=== PATIENT | female | born 1960 | race Caucasian/White ===

== ENCOUNTER 2018-01-28 23:11 | Emergency (ER) | payer BC ==
[2018-01-29] MEDS: KETOROLAC 60 MG/2 ML VIAL (J1885) IM
== END 2018-01-29 02:05 | disposition home or self-care (01) ==
LOC: M ED 23:11
DX: I80.01 Phlebitis and thrombophlebitis of superficial vessels of right lower extremity (principal); Z79.899 Other long term (current) drug therapy; Z79.82 Long term (current) use of aspirin; F17.210 Nicotine dependence, cigarettes, uncomplicated
CPT/HCPCS: 93971

== ENCOUNTER 2018-03-20 08:23 | Emergency (ER) | payer BC | END 2018-03-20 09:09 | disposition left against medical advice (07) | LOC: M ED 08:23 | DX: Z53.29 Procedure and treatment not carried out because of patient's decision for other reasons (principal) ==

== ENCOUNTER 2018-03-20 09:24 | Emergency (ER) | payer BC | END 2018-03-20 11:03 | disposition home or self-care (01) | LOC: M ED 09:24 | DX: L03.115 Cellulitis of right lower limb (principal); Z79.899 Other long term (current) drug therapy; Z79.82 Long term (current) use of aspirin; F17.210 Nicotine dependence, cigarettes, uncomplicated | CPT/HCPCS: 73590 ==

== ENCOUNTER 2018-03-23 15:37 | Emergency (ER) | payer BC | END 2018-03-23 16:57 | disposition home or self-care (01) | LOC: M ED 15:37 | DX: L03.115 Cellulitis of right lower limb (principal); Z79.899 Other long term (current) drug therapy; Z79.82 Long term (current) use of aspirin | CPT/HCPCS: 99282 ==